=== PATIENT | female | born 1990 | race Native Hawaiian/Other Pacific Islander ===

== ENCOUNTER 2023-09-28 13:49 | Emergency (ER) | payer OTHER ==
[~2023-09-28] VITALS: Ht 147.3 cm; Wt 102.5 kg
[2023-09-28 15:15] LABS: Basophils # (auto) 0 10 ^3/uL (0-0.2); Basophils % (auto) 0.2 % (0.0-2.0); Eosinophils # (auto) 0.1 10 ^3/uL (0-0.8); Eosinophils % (auto) 0.9 % (0.0-7.0); Hematocrit 40.2 % (36.0-46.0); Hemoglobin 13.5 g/dL (12.2-16.2); Lymphocytes # (auto) 2.6 10 ^3/uL (0.4-5.4); Lymphocytes % (auto) 36.5 % (10.0-50.0); Mean Corpuscular Hemoglobin 30.1 pg (28.0-32.0); Mean Corpuscular Hgb Conc. 33.6 g/dL (32.0-36.0); Mean Corpuscular Volume 89.8 fL (80.0-100.0); Monocytes # (auto) 0.4 10 ^3/uL (0-1.3); Monocytes % (auto) 5.9 % (0.0-12.0); Neutrophils % (auto) 56.5 % (37.0-80.0); Nucleated Red Blood Cells % 0.2 %; Red Blood Cells 4.48 10^6/uL (4.0-5.20); Red Cell Distribution Width 12.9 % (11.8-14.3); White Blood Cell 7.1 10^3/uL (4.4-10.8)
[2023-09-28 15:33] LABS: Alanine Aminotransferase 25 U/L (7-40); Alkaline Phosphatase 71 U/L (46-116); Anion Gap 6 (5-15); Aspartate Aminotransferase 18 U/L (13-40); Blood Urea Nitrogen 12 mg/dL (9-23); Calcium 9.8 mg/dL (8.5-10.1); Carbon Dioxide 29 mmol/L (20-30); Chloride 104 mmol/L (98-107); Glucose 95 mg/dL (74-106); Potassium 4.2 mmol/L (3.5-5.1); Sodium 139 mmol/L (136-145)
[2023-09-28 15:34] LABS: Albumin 4.7 g/dL (3.2-4.8); Bilirubin, Total 0.5 mg/dL (0.2-1.0); Total Protein 7.4 g/dL (5.7-8.2)
[2023-09-28 15:45] LABS: Free T3 3.38 pg/mL (2.3-4.2); Free T4 (Free Thyroxine) 1.38 ng/dL (0.89-1.76)
[2023-09-28 16:24] LABS: Urine WBC None Seen /hpf (0 - 5)
[2023-09-28 16:34] LABS: Urine Bacteria FEW /hpf (None Seen); Urine Blood Negative /uL (Negative); Urine Clarity Clear (Clear); Urine Color Colorless (Yellow); Urine Protein, UAD Negative (Negative); Urine Specific Gravity 1.003 (1.001-1.035); Urine Urobilinogen Normal (Negative); Urine pH 5.5 (5.0-9.0)
[2023-09-28 19:06] VITALS: BP 111/81; PULSE 94; RESP 16; O2SAT 100
== END 2023-09-28 19:07 | disposition home or self-care (01) ==
LOC: ER 13:49
DX: R42 Dizziness and giddiness (principal); R10.2 Pelvic and perineal pain
CPT/HCPCS: 36415; 80053; 81001; 83735; 84439; 84443; 84481; 84484; 84702; 85025; 93005

== ENCOUNTER 2024-05-12 17:38 | Emergency (ER) | payer OTHER ==
[~2024-05-12] VITALS: Ht 147.3 cm; Wt 108.0 kg
[2024-05-12 19:04] VITALS: BP 147/89; PULSE 92; RESP 18; TEMP 98.3; O2SAT 97
--- NOTE | 2024-05-12 19:18 | ED.PDOC ---
Musculoskeletal HPI Comments This is a 33-year-old female presents to the ED status post needle exposure states he was 2nd patient's blood glucose when she accidentally poked her right thumb with a lancet. Does state that as she is unsure if the lancet was used. Tiny puncture wound noted to left thumb no noted erythema or bleeding denies weakness and numbness. Chief Complaint: Lower Extremity Time Seen by MD: 18:04 Primary Care Provider: NONE Reviewed Notes: Nurses Notes, Medications, Allergies Allergies: Coded Allergies: Amoxicillin (Verified Allergy, Unknown, 09/28/23) Information Source: Patient Mode of Arrival: Ambulatory Past Medical History PAST MEDICAL HISTORY: Denies Surgical History: Denies all surgeries MATCH UP PERSON History: No Pertinent MATCH UP PERSON History Family History Family History: Unknown Social History Smoker: Non-Smoker Alcohol: Denies ETOH Use Drugs: Denies Drug Use Lives In: Home Constitutional: denies: chills, diaphoresis, fatigue, fever, malaise, sweats, weakness, others EENTM: denies: blurred vision, double vision, ear bleeding, ear discharge, ear drainage, ear pain, ear ringing, eye pain, eye redness, hearing loss, mouth pain, mouth swelling, nasal discharge, nose bleeding, nose congestion, nose pain, photophobia, tearing, throat pain, throat swelling, voice changes, others Respiratory: denies: cough, hemoptysis, orthopnea, SOB at rest, shortness of breath, SOB with excertion, stridor, wheezing, others Cardiovascular: denies: chest pain, dizzy spells, diaphoresis, Dyspnea on exertion, edema, irregular heart beat, left arm pain, lightheadedness, palpitations, PND, syncope, others Gastrointestinal: denies: abdomen distended, abdominal pain, blood streaked bowels, constipated, diarrhea, dysphagia, difficulty swallowing, hematemesis, melena, nausea, poor appetite, poor fluid intake, rectal bleeding, rectal pain, vomiting, others Genitourinary: denies: abnormal vagina bleeding, burning, dyspareunia, dysuria, flank pain, frequency, hematuria, incontinence, pain, , vagina discharge, urgency, others Neurological: denies: dizziness, fainting, headache, left sided numbness, left sided weakness, numbness, paresthesia, pre-existing deficit, right sided numbness, right sided weakness, seizure, speech problems, tingling, tremors, weakness, others Musculoskeletal: denies: back pain, gout, joint pain, joint swelling, muscle pain, muscle stiffness, neck pain, others Integumetry: reports: wounds (Right thumb); denies: bruises, change in color, change in hair/nails, dryness, laceration, lesions, lumps, rash, others Allergic/Immunocompromised: denies: Difficulty Healing, Frequent Infections, Hives, Itching, others Hematologic/Lymphatic: denies: anemia, blood clots, easy bleeding, easy bruising, swollen glands, others Endocrine: denies: excessive hunger, excessive sweating, excessive thirst, excessive urination, flushing, intolerance to cold, intolerance to heat, unexplained weight gain, unexplained weight loss, others Psychiatric: denies: anxiety, bipolar disorder, depression, hopeless, panic disorder, schizophrenia, sleepless, suicidal, others Physical Exam General Appearance: No Apparent Distress, Normal HEENT: Normal ENT Inspection, Pharynx Normal, TMs Normal Neck: Full Range of Motion, Non-Tender Respiratory: Lungs Clear, No Respiratory Distress, Normal Breath Sounds Cardiovascular: No Edema, No JVD, No Murmur, No Gallop, Normal Peripheral Pulses, Regular Rate/Rhythm Breast Exam: Deferred Gastrointestinal: No Organomegaly, Non Tender, No Pulsatile Mass, Normal Bowel Sounds, Soft Genitalia: Deferred Pelvic: Deferred Rectal: Deferred Extremities: Normal capillary refill, Normal inspection, Normal range of motion, Non-tender, No pedal edema Musculoskeletal : Apperance: Normal Neurologic: Alert, pin maker II-XII nml as Tested, No Motor Deficits, Normal Affect, Normal Mood, No Sensory Deficits Cerebellar Function: Normal Reflexes: Normal Skin: Dry, Normal Color, Warm Lymphatic: No Adenopathy Was a procedure done? Was a procedure done?: No Differential Diagnosis EXT Differential Diagnosis: Cellulitis X-Ray, Labs, Meds, VS Vital Signs Date Time Temp Pulse Resp B/P (MAP) Pulse Ox O2 Delivery O2 Flow Rate FiO2 05/12/24 19:04 98.3 92 18 147/89 (108) 97 98.3 05/12/24 19:04 92 18 97 Room Air 05/12/24 17:45 98.3 92 18 136/94 (108) 97 147/89 (108) Lab Test 05/12/24 19:09 Range/Units Hepatitis B Surface Antigen Pending Hepatitis B Surface Antibody Pending Hepatitis C Antibody Pending HIV (1&2) Antibody Pending X-Ray, Labs, Meds, VS Comment Baseline labs drawn for hepatitis and HIV. Low risk patient in a low risk stick offered to start trial of antiviral HIV medications however refused at this time. Speaks to call HR and follow up with occupational health for her results and continued management and repeat labs per exposure protocol advised on ER return precautions. Follow up with her PCP as needed. Patient agrees with discharge plan of care. Time of 1ST Reevaluation: 19:17 Reevaluation 1ST: Improved Patient Education/Counseling: Diagnosis, Treatment, Prognosis, Need For Follow Up Family Education/Counseling: No Family Present Departure 1 Departure Time of Disposition: 19:17 Impression: Primary Impression: Needle exposure Qualified Codes: X58.XXXA - Exposure to other specified factors, initial encounter Disposition: HOME / SELF CARE / HOMELESS Condition: Stable Discharged With: Self Critical Care Note Critical Care Time?: No Stability Stability form required: SHENG Lott May 12, 2024 19:18
[2024-05-15 09:32] LABS: Hepatitis B Surface Antibody Negative (Negative); Hepatitis B Surface Antigen Negative (Negative)
== END 2024-05-12 19:33 | disposition home or self-care (01) ==
LOC: ER 17:38
DX: M79.644 Pain in right finger(s) (principal); R06.02 Shortness of breath; Z88.0 Allergy status to penicillin; W27.3XXD Contact with needle (sewing), subsequent encounter
CPT/HCPCS: 36415; 86703; 86706; 86803; 87340